=== PATIENT | male | born 1930 | race Caucasian/White ===

== ENCOUNTER 2016-12-01 12:33 | Inpatient (IN) | payer MEDICARE ==
[2016-12-01] MEDS ORDERED: Merrem 1 GM 1 G in Sodium Chloride 100ML MINI-BAG PLUS 100 ML IV STA (12:52)
[2016-12-01] MEDS ORDERED: Sodium Chloride 0.9% 1000 ML 1,000 ML IV SCH (13:00)
[2016-12-01 13:01] LABS: VBG BASE EXCESS 11.1 (-2.0-2.0); VBG CARBOXYHEMOGLOBIN 1.6 % T HGB (0.0-6.9); VBG HCO3- 37.2 meq/L (22-28); VBG O2 SATURATION 26.7 (95-100); VBG POTASSIUM 4.2 (3.5-5.1); VBG pH 7.43 (7.32-7.42)
[2016-12-01] MEDS ORDERED: Merrem 1 GM IV ONE (13:02)
[2016-12-01] MEDS ORDERED: Sodium Chloride 0.9% 1000 ML 1,000 ML ONE (13:03)
[2016-12-01] MEDS ORDERED: Sodium Chloride 0.9% 100 ML IVPB 100 ML IV ONE (13:03)
--- NOTE | 2016-12-01 13:06 | ERPHSYRPT ---
- History of Present Illness Time Seen by Provider: 12/01/16 12:41 Source: patient, family (son who is POA), EMS, [facility] Patient Subjective Stated Complaint: ALTERED LOC, COUGH, FEVER Triage Nursing Assessment: PER ASSISTED STAFF, PT ATE BREAKFAST THIS MORNING AND TOOK MEDS WHOLE AND RECENTLY BECAME 'RATTLING RESP AND UNRESPONSIVE TO STAFF. HE HAS A FEVER OF 101 AX AND ISNT HIMSELF LIKE NORMAL' ON ARRIVAL, KEEPS EYES CLOSED BUT WILL RESPOND TO NAME. APRROPRIATE WITH ANSWERS BUT CONFUSED TO PLACE. COARSE, WET RESPIRATIONS. INDWELLING CATH. WEAK UPPER EXTREMITIES. SKIN MOIST. Physician History: CC: altered mental status Hx: 85 y/o patient [facility]. He has hx of prior spine injury 30 years ago, heart disease, on xarelto, home oxygen at night. He has been sleepy and worsening over one week. Today fever, low O2 sat, and not responding so sent to ER. No vomiting. Wears chronic medrano. No fall or injury known. Not eating or drinking. Allergies/Adverse Reactions: levofloxacin [From Levaquin] Allergy (Intermediate, Verified 12/01/16 12:51) morphine Allergy (Intermediate, Verified 12/01/16 12:51) cefamandole nafate [From Mandol] Allergy (Mild, Verified 12/01/16 12:51) ketorolac tromethamine [From Toradol] Allergy (Mild, Verified 12/01/16 12:51) meperidine HCl [From Demerol] Allergy (Mild, Verified 12/01/16 12:51) mardol Allergy (Uncoded 12/01/16 12:51) Home Medications: Bimatoprost 0.01% [Lumigan 0.01% 2.5 ml] 1 drop OP HS 04/09/14 [History] Budesonide/Formoterol Fumarate [Symbicort 160-4.5 Mcg Inhaler] 2 puff IH BID 05/23 [History] Potassium Chloride 20 Meq Tab [Potassium Chloride 20 MEQ TABLET] 30 meq PO HS [History] Prednisone 10 mg [Deltasone 10 mg] 10 mg PO DAILY 04/09/14 [History] Ranitidine HCl [Zantac] 150 mg PO HS 04/09/14 [History] Acetaminophen [Tylenol Extra Strength] 500 mg PO Q4HPRN PRN 02/11/15 [History] Albuterol/Ipratropium 3ml Neb* [DUONEB 0.5-3 MG/3 ml Neb] 1 neb IH Q6HPRN PRN 02/11/15 [History] Escitalopram Oxalate 10 mg [Lexapro 10 MG] 10 mg PO DAILY 02/11/15 [History] Furosemide [Lasix] 40 mg PO DAILY 02/11/15 [History] Rivaroxaban 10 mg Tablet [Xarelto 10 mg Tablet] 10 mg PO DAILY 02/11/15 [ History] Gabapentin [Neurontin] 300 mg PO TID 03/29/15 [History] Hydrocodone Bit/Acetaminophen [Hickman 5-325 Tablet] 1 each PO TID 03/10/16 [ History] Modafinil 200 mg PO DAILY 03/10/16 [History] Multivit-Min/FA/Lycopene/Lut [Centrum Silver Tablet] 1 each PO DAILY 03/10/16 [ History] Allopurinol 100 mg [Zyloprim 100 mg] 100 mg PO DAILY 11/14/16 [History] Bacitracin [Bacitraycin Plus] 28 gm TP BID 11/14/16 [History] Fluticasone Propionate [Flonase Allergy Relief] 15.8 ml NS BID 11/14/16 [History ] Hydrocortisone [Preparation H] 26 gm TP UD 11/14/16 [History] Loperamide HCl 2 mg [Imodium 2 mg] 2 mg PO Q4H PRN PRN 11/14/16 [History] Mag Hydrox/Al Hydrox/Simeth [Mylanta Maximum Strength Liq] 5 ml PO Q6H PRN PRN 11/14/16 [History] Hx Tetanus, Diphtheria Vaccination/Date Given: Yes Hx Influenza Vaccination/Date Given: No Hx Pneumococcal Vaccination/Date Given: No - Review of Systems Constitutional: Fever Respiratory: Cough (with rattly breathing), Dyspnea Abdominal/Gastrointestinal: No Vomiting All Other Systems: Unable due to condition - Past Medical History Pertinent Past Medical History: Yes Neurological History: Alzheimer's Disease ENT History: Cataracts, Glaucoma Cardiac History: Aneurysm, Arrhythmia, Congestive Heart Failure, Peripheral Vascular Disease Respiratory History: CHF, COPD Endocrine Medical History: No Pertinent History Musculoskeletal History: Fractures, Osteoarthritis, Other GI Medical History: GERD, Hemorrhoids, Other History: Other Psycho-Social History: Depression Male Reproductive Disorders: No Pertinent History Other Medical History: urinary retention, peripheral neuropathy, neuro muscular bladder, tremors, chronic constipation, neurogenic bowel, gout, spinal pelvic and rib fx - Past Surgical History Past Surgical History: Yes Neuro Surgical History: Neurological Surgery Cardiac: Vascular Surgery Respiratory: No Pertinent History Gastrointestinal: No Pertinent History Genitourinary: No Pertinent History Musculoskeletal: Orthopedic Surgery Male Surgical History: No Pertinent History Other Surgical History: aneurysm repair R leg, 100 foot fall resulting in orthopedic and neuro surgery to back - Social History Smoking Status: Never smoker Exposure to second hand smoke: No Alcohol Use: None Drug Use: none Patient Lives Alone: No (usp patient) Significant Family History: no pertinent family hx - Nursing Vital Signs Nursing Vital Signs: Initial Vital Signs Temperature 97.7 F 12/01/16 12:41 Pulse Rate 103 H 12/01/16 12:41 Respiratory Rate 28 H 12/01/16 12:41 Blood Pressure 111/74 12/01/16 12:41 O2 Sat by Pulse Oximetry 92 L 12/01/16 12:41 - Physical Exam General Appearance: alert (answers simple questions for nurses) Eye Exam: other (mid sized pupils are equal) Ears, Nose, Throat Exam: dry mucous membranes Neck Exam: supple Respiratory Exam: respiratory distress (mild rattling breathing), rhonchi Cardiovascular Exam: regular rate/rhythm Gastrointestinal/Abdomen Exam: soft, No tenderness, No distention Back Exam: normal inspection Extremity Exam: pedal edema (trace) Neurologic Exam: alert, other (follows simple commands, weak in legs, mumbles answers to questions) Skin Exam: other (hot skin without rash) SpO2 Interpretation: borderline oxygenation, O2 applied SpO2: 91 Oxygen Delivery: Nasal Cannula - Course Nursing assessment & vital signs reviewed: Yes EKG Interpreted by Me: RATE (102), A-fib, NORMAL INTERVALS (QTc 482), NORMAL ST- T - Radiology Exams cxr X-ray Interpretation: Reviewed by me (CM, Right base infiltrate) - CT Exams head CT Interpretation: Negative, Tele-radiologist Report Ordered Tests: Active Orders 24 hr Category Date Time Status Stamp Redemption Clerk STAT Care 12/01/16 12:41 Active Cath [Catheter-[place] Medrano] STAT Care 12/01/16 14:19 Active EKG-ER Only STAT Care 12/01/16 12:41 Active IV Insertion STAT Care 12/01/16 12:42 Active IV Insertion-2nd Peripheral STAT Care 12/01/16 12:55 Active Oxygen-ED Only NASAL CANNULA 2 lpm Care 12/01/16 12:55 Active Pulse Oximetry (ED) STAT Care 12/01/16 12:41 Active Saline Lock STAT Care 12/01/16 12:41 Active CHEST 1 VIEW (PORTABLE) Stat Exams 12/01/16 12:42 Taken HEAD WITHOUT CONTRAST [CT] Stat Exams 12/01/16 12:50 Taken BLOOD CULTURE Stat Lab 12/01/16 13:00 Received CBC W DIFF Stat Lab 12/01/16 13:00 Completed CMP Routine Lab 12/01/16 13:00 Completed CULTURE,URINE Stat Lab 12/01/16 13:00 Received Lactic Acid Stat Lab 12/01/16 12:41 Completed NT PRO BNP Routine Lab 12/01/16 13:00 Completed PROTIME WITH INR Stat Lab 12/01/16 13:00 Completed PTT Stat Lab 12/01/16 13:00 Completed TROPONIN Q3H Lab 12/01/16 13:00 Completed TROPONIN Q3H Lab 12/01/16 15:45 Ordered TROPONIN Q3H Lab 12/01/16 18:45 Ordered TROPONIN Q3H Lab 12/01/16 21:45 Ordered TROPONIN Q3H Lab 12/02/16 00:45 Ordered UA W/ MICROSCOPIC Stat Lab 12/01/16 13:00 Completed VENOUS BLOOD GAS Urgent Lab 12/01/16 12:42 Completed Medication Summary Generic Name Dose Route Start Last Admin Trade Name Freq PRN Reason Stop Dose Admin Sodium Chloride 1,000 mls @ 100 mls/hr 12/01/16 13:00 12/01/16 13:11 Sodium Chloride 0.9% 1000 Ml IV 12/31/16 12:59 100 mls/hr .Q10H NATALIE Administration Discontinued Medications Generic Name Dose Route Start Last Admin Trade Name Freq PRN Reason Stop Dose Admin Meropenem 1 g/ Sodium Chloride 100 mls @ 200 mls/hr 12/01/16 12:52 12/01/16 13:11 IV 12/01/16 13:21 200 mls/hr STAT STA Administration Sodium Chloride Confirm 12/01/16 13:03 Sodium Chloride 0.9% 100 Ml Ivpb Administered 12/01/16 13:04 Dose 100 mls @ ud IV .STK-MED ONE Meropenem Confirm 12/01/16 13:02 Merrem 1 Gm Administered 12/01/16 13:03 Dose 1 g IV .STK-MED ONE Lab/Rad Data: Laboratory Result Diagrams 12/01/16 13:00 12/01/16 13:00 Laboratory Results 12/01/16 12/01/16 12/01/16 Range/Units 13:00 13:00 13:00 WBC 11.4 H (4.0-10.5) K/mm3 RBC 3.68 L (4.1-5.6) M/mm3 Hgb 10.7 L (12.5-18.0) gm/dl Hct 35.2 L (42-50) % MCV 95.7 (78-100) fl MCH 29.0 (26-32) pg MCHC 30.4 L (32-36) g/dl RDW 16.3 H (11.5-14.0) % Plt Count 337 (150-450) K/mm3 MPV 9.4 (6-9.5) fl Gran % 68.9 H (36.0-66.0) % Lymphocytes % 18.3 L (24.0-44.0) % Monocytes % 11.8 (0.0-12.0) % Eosinophils % 0.8 (0.00-5.0) % Basophils % 0.2 (0.0-0.4) % Basophils # 0.02 (0-0.4) INR 1.47 (0.8-3.0) APTT 36.4 H (24.1-36.1) SECONDS VBG pH (7.32-7.42) VBG pCO2 at Pat Temp (42-55) mm/Hg VBG pO2 at Pat Temp (25-40) mm/Hg VBG HCO3 (22-28) meq/L VBG O2 Sat ([place]) (95-100) VBG Base Excess (-2.0-2.0) VBG Hemoglobin VBG Carboxyhemoglobin (0.0-6.9) % T HGB POC Potassium (3.5-5.1) Sodium 142 (136-145) mEq/L Potassium 4.8 (3.5-5.1) mEq/L Chloride 101 (98-107) mEq/L Carbon Dioxide 30.5 (21-32) mEq/L Anion Gap 15.6 H (5-15) MEQ/L BUN 35 H (9-20) mg/dL Creatinine 1.77 H (0.55-1.30) mg/dl Estimated GFR 39 ML/MIN Glucose 155 H (70-110) MG/DL Lactic Acid (0.4-2.0) Calcium 9.5 (8.5-10.1) mg/dL Total Bilirubin 0.40 (0.2-1.0) mg/dL AST 43 H (15-37) U/L ALT 57 (12-78) U/L Alkaline Phosphatase 105 (46-116) U/L Troponin I 0.164 H* (0.000-0.056) ng/ml NT-Pro-B Natriuret Pep 4056 H (0-450) pg/ml Serum Total Protein 7.9 (6.4-8.2) gm/dL Albumin 3.1 L (3.4-5.0) g/dL Ur Collection Type Urine Color (YELLOW) Urine Appearance (CLEAR) Urine pH (5-6) Ur Specific [place] (1.005-1.025) Urine Protein (Negative) Urine Ketones (NEGATIVE) Urine Blood (0-5) [place]/ul Urine Nitrite (NEGATIVE) Urine Bilirubin (NEGATIVE) Urine Urobilinogen (0-1) mg/dL Ur Leukocyte Esterase (NEGATIVE) Urine Microscopic RBC (0-2) /HPF Urine Microscopic WBC (0-5) /HPF Ur Epithelial Cells (FEW) /HPF Urine Bacteria (NEGATIVE) /HPF Urine Glucose (NEGATIVE) mg/dL Specimen Received 12/01/16 12/01/16 12/01/16 Range/Units 13:00 12:42 12:41 WBC (4.0-10.5) K/mm3 RBC (4.1-5.6) M/mm3 Hgb (12.5-18.0) gm/dl Hct (42-50) % MCV (78-100) fl MCH (26-32) pg MCHC (32-36) g/dl RDW (11.5-14.0) % Plt Count (150-450) K/mm3 MPV (6-9.5) fl Gran % (36.0-66.0) % Lymphocytes % (24.0-44.0) % Monocytes % (0.0-12.0) % Eosinophils % (0.00-5.0) % Basophils % (0.0-0.4) % Basophils # (0-0.4) INR (0.8-3.0) APTT (24.1-36.1) SECONDS VBG pH 7.43 H (7.32-7.42) VBG pCO2 at Pat Temp 56 H (42-55) mm/Hg VBG pO2 at Pat Temp 18 L (25-40) mm/Hg VBG HCO3 37.2 H* (22-28) meq/L VBG O2 Sat ([place]) 26.7 L (95-100) VBG Base Excess 11.1 H (-2.0-2.0) VBG Hemoglobin 11.0 VBG Carboxyhemoglobin 1.6 (0.0-6.9) % T HGB POC Potassium 4.2 (3.5-5.1) Sodium (136-145) mEq/L Potassium (3.5-5.1) mEq/L Chloride (98-107) mEq/L Carbon Dioxide (21-32) mEq/L Anion Gap (5-15) MEQ/L BUN (9-20) mg/dL Creatinine (0.55-1.30) mg/dl Estimated GFR ML/MIN Glucose (70-110) MG/DL Lactic Acid 1.8 (0.4-2.0) Calcium (8.5-10.1) mg/dL Total Bilirubin (0.2-1.0) mg/dL AST (15-37) U/L ALT (12-78) U/L Alkaline Phosphatase (46-116) U/L Troponin I (0.000-0.056) ng/ml NT-Pro-B Natriuret Pep (0-450) pg/ml Serum Total Protein (6.4-8.2) gm/dL Albumin (3.4-5.0) g/dL Ur Collection Type CATH Urine Color YELLOW (YELLOW) Urine Appearance CLOUDY (CLEAR) Urine pH 5.0 (5-6) Ur Specific [place] 1.015 (1.005-1.025) Urine Protein 100 (Negative) Urine Ketones NEGATIVE (NEGATIVE) Urine Blood 250 (0-5) [place]/ul Urine Nitrite NEGATIVE (NEGATIVE) Urine Bilirubin NEGATIVE (NEGATIVE) Urine Urobilinogen NORMAL (0-1) mg/dL Ur Leukocyte Esterase 2+ (NEGATIVE) Urine Microscopic RBC 25-50 (0-2) /HPF Urine Microscopic WBC 50-100 (0-5) /HPF Ur Epithelial Cells FEW (FEW) /HPF Urine Bacteria MODERATE (NEGATIVE) /HPF Urine Glucose NEGATIVE (NEGATIVE) mg/dL Specimen Received 12/01/16 1245 - Progress Progress Note: 12/01/16 13:04 Son requests [facility]. He would like CT since pt was unresponsive at [facility] and for EMS. 12/01/16 14:26 Pt visiting with family. He has been confused. He has some UTI from chronic medrano at [facility] POA. He has some RLL infiltrate. Called Dr Wiseman for Dr Brock and will admit. Pt family agrees with [facility]CO but prefers ICU. Will see patient in: hospital (full admit) Counseled pt/family regarding: lab results, diagnosis, need for follow-up, rad results - Departure Time of Disposition: 14:27 Departure Disposition: In-patient Admission Clinical Impression: UTI (urinary tract infection), Sepsis, pneumonia health care associated Condition: Fair Critical Care Time: No Referrals: OSWALDO BROCK [Primary Care Provider] -
[2016-12-01 13:09] LABS: BASOPHIL % 0.2 % (0.0-0.4); Eosinophil % 0.8 % (0.00-5.0); Granulocytes % 68.9 % (36.0-66.0); Lymphocytes % 18.3 % (24.0-44.0); Mean Cell Volume 95.7 fl (78-100); Mean Platelet Volume 9.4 fl (6-9.5); Monocytes % 11.8 % (0.0-12.0); Platelet Count 337 K/mm3 (150-450); Red Blood Count 3.68 M/mm3 (4.1-5.6); Red Cell Distribution Width 16.3 % (11.5-14.0); White Blood Count 11.4 K/mm3 (4.0-10.5)
[2016-12-01 13:17] LABS: Bilirubin NEGATIVE (NEGATIVE); Blood 250 Ery/ul (0-5); COMPLETE URINE MICROSCOPIC? YES; Collection Type CATH; Glucose NEGATIVE (NEGATIVE); Leukocyte Esterase 2+ (NEGATIVE)
[2016-12-01 13:23] LABS: Bacteria MODERATE /HPF (NEGATIVE); Epithelial Cells FEW /HPF (FEW); WBC 50-100 /HPF (0-5)
[2016-12-01 13:24] LABS: INR 1.47 (0.8-3.0); PROTIME 16.7 SECONDS (8.83-12.87)
[2016-12-01 13:27] LABS: PTT 36.4 SECONDS (24.1-36.1)
[2016-12-01 13:49] LABS: ALBUMIN 3.1 g/dL (3.4-5.0); ANION GAP 15.6 MEQ/L (5-15); BILIRUBIN,TOTAL 0.4 mg/dL (0.2-1.0); Carbon Dioxide 30.5 mEq/L (21-32); Potassium 4.8 mEq/L (3.5-5.1); Total Protein 7.9 gm/dL (6.4-8.2)
[2016-12-01 13:51] LABS: TROPONIN 0.164 ng/ml (0.000-0.056)
[2016-12-01] MEDS ORDERED: Lasix 40 MG/4 ML IV ONE (14:25)
[2016-12-01] MEDS ORDERED: Lasix 40 MG/4 ML ONE (14:27)
[2016-12-01] MEDS ORDERED: NovoLOG Insulin SQ PRN (15:20)
[2016-12-01] MEDS: DUONEB 0.5-3 MG/3 ml Neb IH PRN ×2 (15:40→23:20)
[2016-12-01] MEDS ORDERED: PULMICORT 0.5 MG/2 ML RESPULES IH ONE (18:30)
[2016-12-01] MEDS ORDERED: PULMICORT NEBULE IH SCH (19:00)
[2016-12-01] MEDS ORDERED: PULMICORT 0.5 MG/2 ML RESPULES IH SCH (19:00)
[2016-12-01] MEDS: DUONEB 0.5-3 MG/3 ml Neb IH SCH (19:16)
[2016-12-01] MEDS: PULMICORT NEBULE IH SCH (19:17)
--- NOTE | 2016-12-01 19:17 | XRAY ---
Indication: Unresponsive. Multiple contiguous axial images obtained through the head without contrast. Comparison: February 28, 2015. Stable age-appropriate global atrophy and mild periventricular degenerative micro-ischemia. No acute intracranial hemorrhage, abnormal extra-axial fluid collection, or mass effect. Fourth ventricle is midline. Bony calvarium intact. Stable chronic mucoperiosteal thickening of the right maxillary sinus. Mastoid air cells clear. Impression: Stable nonacute senile brain with chronic right maxillary sinusitis. Comment: Preliminary interpretation was made by [facility]. No discrepancy. CTDI 71.08
--- NOTE | 2016-12-01 19:17 | XRAY ---
Indication: Fever and cough. Comparison: June 06, 2016. Portable chest unchanged again underinflated with bibasilar infiltrate/atelectasis. No consolidation or large effusion. Heart is borderline enlarged. Bony thorax intact again with osteopenia and degenerative changes.
[2016-12-01 20:54] LABS: A-aADO2 322; ARTERIAL BLD GAS O2 SATURATION 93.5 % (95-100); ARTERIAL BLOOD GAS BASE EXCESS 8.6 (-2.0-2.0); ARTERIAL BLOOD GAS FIO2 60 %; ARTERIAL BLOOD GAS PO2 61 mmHg (75-100)
[2016-12-01] MEDS ORDERED: Lasix 40 MG/4 ML IV STA (21:06)
[2016-12-01] MEDS: Zithromax 500 MG/ 250 ML NaCl Premix 500 MG/250 ML IVPB IV SCH (21:19)
[2016-12-01] MEDS: ROCEPHIN 1 Gm-D5w 50 ml Bag** 1 G/50 ML IVPB IV SCH (21:32)
[2016-12-01 21:49] LABS: ARTERIAL BLOOD GAS pH 7.55 (7.35-7.45)
[2016-12-01] MEDS ORDERED: NORCO 5/325 MG PO ONE (22:00)
[2016-12-01] MEDS ORDERED: NEURONTIN 300 MG PO ONE (22:00)
[2016-12-01] MEDS ORDERED: Klor Con 10 MEQ PO ONE (22:00)
[2016-12-01] MEDS ORDERED: Pepcid 20 MG PO ONE (22:00)
[2016-12-01] MEDS ORDERED: LUMIGAN 0.01% 2.5 ML OP ONE (22:00)
[2016-12-01] MEDS: MERREM 500MG 500 MG in Sodium Chloride 100ML MINI-BAG PLUS 100 ML IV SCH (22:59)
[2016-12-02] MEDS: Sodium Chloride 0.9% 1000 ML 1,000 ML IV SCH ×2 (02:11→18:00)
[2016-12-02] MEDS: MERREM 500MG 500 MG in Sodium Chloride 100ML MINI-BAG PLUS 100 ML IV SCH ×3 (06:29→22:31)
[2016-12-02] MEDS ORDERED: PULMICORT 0.5 MG/2 ML RESPULES IH ONE ×2 (07:21→18:42)
[2016-12-02] MEDS: PULMICORT NEBULE IH SCH ×2 (07:23→19:09)
[2016-12-02] MEDS: DUONEB 0.5-3 MG/3 ml Neb IH SCH ×4 (07:30→19:09)
[2016-12-02 07:52] LABS: Mean Cell Volume 95.2 fl (78-100); Platelet Count 334 K/mm3 (150-450); Red Blood Count 3.31 M/mm3 (4.1-5.6); Red Cell Distribution Width 16.2 % (11.5-14.0); White Blood Count 10.3 K/mm3 (4.0-10.5)
[2016-12-02 08:21] LABS: ANION GAP 13.9 MEQ/L (5-15); Carbon Dioxide 31.2 mEq/L (21-32); Potassium 4.1 mEq/L (3.5-5.1)
[2016-12-02] MEDS ORDERED: NORCO 5/325 MG PO ONE (09:00)
[2016-12-02] MEDS ORDERED: SUBLIMAZE 100 MCG/2 ML IV PRN (09:27)
[2016-12-02] MEDS: TYLENOL EXTRA STRENGTH 500 MG PO PRN ×2 (09:54→15:20)
[2016-12-02] MEDS ORDERED: DELTASONE 10 MG PO SCH (10:00)
[2016-12-02] MEDS: ROCEPHIN 1 Gm-D5w 50 ml Bag** 1 G/50 ML IVPB IV SCH (10:01)
[2016-12-02] MEDS ORDERED: CORTISONE 1% CREAM TP PRN (10:30)
[2016-12-02] MEDS: Zithromax 500 MG/ 250 ML NaCl Premix 500 MG/250 ML IVPB IV SCH (10:32)
[2016-12-02] MEDS ORDERED: BACITRACIN TP SCH (11:00)
[2016-12-02] MEDS: Lasix 40 MG PO SCH (11:21)
[2016-12-02] MEDS: XARELTO 10 MG TABLET PO SCH (11:21)
[2016-12-02] MEDS: Lexapro 10 MG PO SCH (11:21)
[2016-12-02] MEDS: BACIGUENT 30 GM TOP SCH ×2 (11:22→22:32)
[2016-12-02] MEDS: THERAGRAN MULTIVITAMIN PO SCH (11:22)
[2016-12-02] MEDS: ZYLOPRIM 100 MG PO SCH (11:22)
[2016-12-02] MEDS: Provigil 100MG Tablet PO SCH (11:22)
[2016-12-02] MEDS: Flonase NASAL NS SCH ×2 (11:23→22:32)
[2016-12-02] MEDS ORDERED: [UNRECOGNIZED DRUG - REMARK] NS SCH (22:00)
[2016-12-02] MEDS ORDERED: NON-FORMULARY ITEM (Ranitidine Hcl [Zantac] 150 MG) PO SCH (22:00)
[2016-12-02] MEDS ORDERED: POTASSIUM CHLORIDE 20 MEQ PO SCH (22:00)
[2016-12-02] MEDS ORDERED: Klor Con 10 MEQ PO SCH (22:00)
[2016-12-02] MEDS: LUMIGAN 0.01% 2.5 ML OP SCH (22:32)
[2016-12-02] MEDS: Pepcid 20 MG PO SCH (22:37)
[2016-12-03 05:37] LABS: Mean Cell Volume 96.2 fl (78-100); Mean Platelet Volume 8.6 fl (6-9.5); Platelet Count 311 K/mm3 (150-450); Red Blood Count 3.16 M/mm3 (4.1-5.6); Red Cell Distribution Width 16.1 % (11.5-14.0); White Blood Count 8.5 K/mm3 (4.0-10.5)
[2016-12-03 05:43] LABS: Mean Corpuscular Hemoglobin 28.7 pg (26-32)
[2016-12-03 06:19] LABS: ALBUMIN 2.6 g/dL (3.4-5.0); ANION GAP 10.8 MEQ/L (5-15); BILIRUBIN,TOTAL 0.3 mg/dL (0.2-1.0); Carbon Dioxide 33.4 mEq/L (21-32); Potassium 3.4 mEq/L (3.5-5.1); Total Protein 6.9 gm/dL (6.4-8.2)
[2016-12-03 06:23] LABS: Total Cells Counted 100
[2016-12-03 06:24] LABS: ANISOCYTOSIS 1+; Platelet Estimate NORMAL (NORMAL); Poikilocytosis 1+
[2016-12-03] MEDS: Sodium Chloride 0.9% 1000 ML 1,000 ML IV SCH (06:30)
[2016-12-03] MEDS: MERREM 500MG 500 MG in Sodium Chloride 100ML MINI-BAG PLUS 100 ML IV SCH ×3 (06:30→22:26)
[2016-12-03] MEDS ORDERED: PULMICORT 0.5 MG/2 ML RESPULES IH ONE (06:58)
[2016-12-03] MEDS: PULMICORT NEBULE IH SCH (07:02)
[2016-12-03] MEDS: DUONEB 0.5-3 MG/3 ml Neb IH SCH ×4 (07:02→19:05)
--- NOTE | 2016-12-03 08:11 | PCM.NOTE ---
Date and Time: 12/03/16 08 Subjective Assessment: he is more alert this am. he had one episode of low bp last night but much improved from previous night he had fever yesterday and meropenem was added. he seems to be improving some this am still confused. Objective Exam General Appearance: obese Neurologic Exam: alert, cooperative, No oriented x 3 Skin Exam: warm, dry, No rash Eye Exam: pale conjunctivae Ears, Nose, Throat Exam: moist mucous membranes Neck Exam: non-tender, supple Respiratory Exam: prolonged expirations, crackles/rales, rhonchi Cardiovascular Exam: regular rate/rhythm, murmur Gastrointestinal/Abdomen Exam: soft, normal bowel sounds, other (Medrano with clear yellow urine), No tenderness, No distention, No guarding Extremity Exam: other (avulsed right 3rd toenail) OBJECTIVE DATA Vital Signs: Vital Signs - 24 hr Temp Pulse Resp BP Pulse Ox 12/03/16 07:05 94 H 20 93 L 12/03/16 04:00 98.4 F 101 H 15 103/66 97 12/03/16 00:30 98.4 F 102 H 22 97/64 95 12/03/16 00:00 101 H 12/02/16 20:00 99.7 F 117 H 21 106/86 96 12/02/16 19:09 103 H 21 97 12/02/16 18:00 99.1 F 109 H 24 92/61 98 12/02/16 16:00 124 H 12/02/16 14:29 112 H 24 99 12/02/16 14:00 100.4 F 120 H 27 H 104/69 97 12/02/16 12:00 107 H 12/02/16 10:45 123 H 28 H 95 12/02/16 10:00 100.1 F 117 H 30 H 124/63 94 L Oxygen-Last 24 hours O2 Percentage 100% O2 Percentage 5 Liters = 40% O2 Percentage 5 Liters = 40% O2 Percentage 100% Pain Assessment - Last Documented Pain Intensity 0 Pain Scale Used FLACC Intake and Output: Intake & Output 11/30/16 12/01/16 12/02/16 12/03/16 11:59 11:59 11:59 11:59 Intake Total 1495 1922 Output Total 4330 1575 Balance -1105 347 Weight 98.1 kg 97.9 kg Lab Results: Accuchecks Date 12/03/16 Date 12/03/16 Date 12/02/16 Date 12/02/16 Time 01:15 Time 18:46 Accucheck Value: 113 Accucheck Value: 187 Accucheck Value: 185 Lab Results-Last 24 Hours 12/02/16 12/02/16 12/02/16 Range/Units 07:43 07:43 09:40 WBC 10.3 (4.0-10.5) K/mm3 RBC 3.31 L (4.1-5.6) M/mm3 Hgb 9.6 L (12.5-18.0) gm/dl Hct 31.5 L (42-50) % MCV 95.2 (78-100) fl MCH 29.0 (26-32) pg MCHC 30.5 L (32-36) g/dl RDW 16.2 H (11.5-14.0) % Plt Count 334 (150-450) K/mm3 MPV 9.0 (6-9.5) fl Segmented Neutrophils (36.-66.) % Lymphocytes (Manual) (24-44) % Monocytes (Manual) (0.0-12.0) % Differential Comment Platelet Estimate (NORMAL) Poikilocytosis Anisocytosis Sodium 144 (136-145) mEq/L Potassium 4.1 (3.5-5.1) mEq/L Chloride 103 (98-107) mEq/L Carbon Dioxide 31.2 (21-32) mEq/L Anion Gap 13.9 (5-15) MEQ/L BUN 29 H (9-20) mg/dL Creatinine 1.49 H (0.55-1.30) mg/dl Estimated GFR 48 ML/MIN Glucose 130 H (70-110) MG/DL Calcium 8.5 (8.5-10.1) mg/dL Total Bilirubin (0.2-1.0) mg/dL AST (15-37) U/L ALT (12-78) U/L Alkaline Phosphatase (46-116) U/L Serum Total Protein (6.4-8.2) gm/dL Albumin (3.4-5.0) g/dL Stl C. diff Tox B Gene (NEGATIVE) C.difficile 027-NAP1-B1 (NEGATIVE) Influenza Type A Ag NEGATIVE (NEGATIVE) Influenza Type B Ag NEGATIVE (NEGATIVE) RSV (PCR) NEGATIVE (Negative) 12/02/16 12/03/16 12/03/16 Range/Units 12:02 05:25 05:25 WBC 8.5 (4.0-10.5) K/mm3 RBC 3.16 L (4.1-5.6) M/mm3 Hgb 9.1 L (12.5-18.0) gm/dl Hct 30.4 L (42-50) % MCV 96.2 (78-100) fl MCH 28.7 (26-32) pg MCHC 29.9 L (32-36) g/dl RDW 16.1 H (11.5-14.0) % Plt Count 311 (150-450) K/mm3 MPV 8.6 (6-9.5) fl Segmented Neutrophils 88 H (36.-66.) % Lymphocytes (Manual) 11 L (24-44) % Monocytes (Manual) 1 (0.0-12.0) % Differential Comment ABNORMAL Platelet Estimate NORMAL (NORMAL) Poikilocytosis 1+ Anisocytosis 1+ Sodium 147 H (136-145) mEq/L Potassium 3.4 L (3.5-5.1) mEq/L Chloride 106 (98-107) mEq/L Carbon Dioxide 33.4 H (21-32) mEq/L Anion Gap 10.8 (5-15) MEQ/L BUN 25 H (9-20) mg/dL Creatinine 1.24 (0.55-1.30) mg/dl Estimated GFR 59 ML/MIN Glucose 103 (70-110) MG/DL Calcium 8.8 (8.5-10.1) mg/dL Total Bilirubin 0.30 (0.2-1.0) mg/dL AST 24 (15-37) U/L ALT 34 (12-78) U/L Alkaline Phosphatase 83 (46-116) U/L Serum Total Protein 6.9 (6.4-8.2) gm/dL Albumin 2.6 L (3.4-5.0) g/dL Stl C. diff Tox B Gene NEGATIVE (NEGATIVE) C.difficile 027-NAP1-B1 PRESUMPTIVE NEGATIVE (NEGATIVE) Influenza Type A Ag (NEGATIVE) Influenza Type B Ag (NEGATIVE) RSV (PCR) (Negative) Radiology Exams: Radiology Procedures Category Date Time Status CHEST 1 VIEW (PORTABLE) Routine Exams 12/03/16 08:09 Ordered Multi-Disciplinary Progress Notes: Multi-Disciplinary Progress Notes 12/02/16 16:24 Respiratory Note by Mariposa Orozco 7LPM OXIMASK SPO2 98. DEC TO 5LPM Initialized on 12/02/16 16:24 - END OF NOTE Assessment/Plan (1) Pneumonia Current Visit: Yes Status: Acute Assessment & Plan: health care associated with sepsis on meropenem now and improving with his chronic steroid use and hx of copdand his episodes of hypotension will add hydrocortisone 50 qid and monitor response to this with history of chf check cxr and decrease fluids to 50ml/h now monitor I/O closely renal function improving but avoid fluid overload with severe chf Code(s): J18.9 - PNEUMONIA, UNSPECIFIED ORGANISM (2) Acute kidney injury Current Visit: Yes Status: Acute Code(s): N17.9 - ACUTE KIDNEY FAILURE, UNSPECIFIED (3) Encephalopathy acute Current Visit: Yes Status: Acute Code(s): G93.40 - ENCEPHALOPATHY, UNSPECIFIED (4) Sepsis Current Visit: Yes Status: Acute (5) UTI (urinary tract infection) Current Visit: Yes Status: Acute Code(s): N39.0 - URINARY TRACT INFECTION, SITE NOT SPECIFIED (6) CHF (congestive heart failure) Current Visit: Yes Status: Chronic Qualifiers: Congestive heart failure type: combined Congestive heart failure chronicity : chronic Qualified Code(s): I50.42 - Chronic combined systolic (congestive) and diastolic (congestive) heart failure Code(s): I50.9 - HEART FAILURE, UNSPECIFIED (7) BPH (benign prostatic hyperplasia) Current Visit: Yes Status: Chronic Assessment & Plan: with chronic medrano catheter Code(s): N40.0 - BENIGN PROSTATIC HYPERPLASIA WITHOUT LOWER URINRY TRACT SYMP (8) Dementia Current Visit: Yes Status: Chronic Code(s): F03.90 - UNSPECIFIED DEMENTIA WITHOUT BEHAVIORAL DISTURBANCE (9) Anemia Current Visit: Yes Status: Acute Code(s): D64.9 - ANEMIA, UNSPECIFIED
--- NOTE | 2016-12-03 08:35 | XRAY ---
Indication: Follow-up pneumonia. Comparison: December 01, 2016. Portable chest demonstrates interval developing small bibasilar effusions with stable bibasilar infiltrates/atelectasis and borderline cardiomegaly. Remaining cardiopulmonary structures unremarkable.
--- NOTE | 2016-12-03 08:49 | HP ---
CHIEF COMPLAINT: Lethargy, confusion, fever. HISTORY OF PRESENT ILLNESS: The patient is an 85 y/o [facility] patient of a local intermediate. He has been having problems with infection over the past couple of days getting worse. He had been treated for a urinary tract infection of E. Coli at the intermediate. He has been receiving Keflex, but had become progressively worse. The family wished him to be brought to the Emergency Room for evaluation and management. He was subsequently admitted to the hospital with preliminary diagnosis of sepsis. PAST MEDICAL HISTORY: Significant for coronary artery disease, history of congestive heart failure, peripheral vascular disease, chronic obstructive pulmonary disease, osteoarthritis, previous history of fractures, and atrial fibrillation. HOME MEDICATIONS: His list of medications in the nursing are [place], Symbicort, potassium, prednisone, Zantac, Tylenol, DuoNebs, Lexapro, Lasix, Xarelto, Neurontin, [place], fentanyl, Centrum tablets, allopurinol, bacitracin, Flonase nasal spray, cortisone cream, Imodium, and MOM. ALLERGIES: LEVAQUIN, MORPHINE, MANDOL, TORADOL, DEMEROL. PHYSICAL EXAMINATION: Presently reveals a lethargic fellow in the Intensive Care Unit who is on O2 100% nonrebreather mask saturating 94% presently. HEENT: Otherwise difficult to evaluation as he is not opening eyes voluntarily. His oropharynx appears to be somewhat dry. NECK: Appears to be supple. CHEST: Reveals coarse rales bilaterally. HEART: Currently, is in normal sinus rhythm without significant murmurs, rubs, or gallops heard. ABDOMEN: Soft. No palpable masses are felt. EXTREMITIES: Reveal mild edema. NEURO: The patient is obtunded. No obvious focal deficits are present. LABORATORY STUDIES: In the Emergency Room, showed a chest x-ray with atelectasis or infiltrate in bibasilar areas. CT scan of the head revealed no acute changes. He had noted to have 50-100 WBC per high powered field with negative nitrite. Specific gravity was 1.015. He had a venous blood gas performed which showed pH of 7.43 and a PCO2 of 56. He had an INR of 1.47. Lactic acid initially was 1.8. His metabolic panel showed a glucose of 155 nonfasting, BUN 35, creatinine 1.77. Electrolytes were normal. Liver enzymes appeared to be normal. His troponin was elevated at 0.164. A NT Pro BNP was elevated at 4056. His WBC was 11,400, Hgb 10.7, and platelet count 337,000. Urine culture was no growth to date. ASSESSMENT: 1. THE PATIENT WITH AN INFECTION, POSSIBLE SEPSIS AND ORGAN FAILURES OCCURRING. He was given IV Lasix and Meropenem in the Emergency Room which he did seem to improve with this improving his mentation. However, since that time, he has been somewhat hypotensive and hypoxic. The patient has been made an SCO by his family which we agree with. The patient's overall condition is quite guarded. It is quite possible the patient will not survive the hospitalization. We have added Rocephin and Zithromax as the family says his last urine culture was positive for E. Coli, but sensitive to Rocephin. We have modified his medication list as it appears he will be unlikely to take his medicines PO. We have discussed with the family pain control with Tylenol, but in order to try to help his lethargy, we are holding his Neurontin and [place] presently.
[2016-12-03] MEDS ORDERED: [UNRECOGNIZED DRUG - OTHER] PO SCH (10:00)
[2016-12-03] MEDS ORDERED: LUT PO SCH (10:00)
[2016-12-03] MEDS ORDERED: LYCOPENE PO SCH (10:00)
[2016-12-03] MEDS ORDERED: MODAFINIL 200 MG PO SCH (10:00)
[2016-12-03] MEDS ORDERED: MULTIVIT MIN PO SCH (10:00)
[2016-12-03] MEDS: Provigil 100MG Tablet PO SCH ×2 (10:23→10:25)
[2016-12-03] MEDS: solu-CORTEF 100MG IV SCH ×3 (10:23→17:42)
[2016-12-03] MEDS: TYLENOL EXTRA STRENGTH 500 MG PO PRN (10:26)
[2016-12-03] MEDS: Lasix 40 MG PO SCH (10:26)
[2016-12-03] MEDS: XARELTO 10 MG TABLET PO SCH (10:26)
[2016-12-03] MEDS: THERAGRAN MULTIVITAMIN PO SCH (10:26)
[2016-12-03] MEDS: Flonase NASAL NS SCH ×2 (10:27→22:27)
[2016-12-03] MEDS: BACIGUENT 30 GM TOP SCH ×2 (10:27→22:26)
[2016-12-03] MEDS: ZYLOPRIM 100 MG PO SCH (10:28)
[2016-12-03] MEDS: Lexapro 10 MG PO SCH (10:30)
--- NOTE | 2016-12-03 12:11 | PCM.NOTE ---
Date and Time: 12/03/16 1151 OBJECTIVE DATA Vital Signs: Vital Signs - 24 hr Temp Pulse Resp BP Pulse Ox 12/03/16 10:41 101 H 22 100 12/03/16 08:00 98.4 F 104 H 18 112/73 97 12/03/16 07:05 94 H 20 93 L 12/03/16 04:00 98.4 F 101 H 15 103/66 97 12/03/16 00:30 98.4 F 102 H 22 97/64 95 12/03/16 00:00 101 H 12/02/16 20:00 99.7 F 117 H 21 106/86 96 12/02/16 19:09 103 H 21 97 12/02/16 18:00 99.1 F 109 H 24 92/61 98 12/02/16 16:00 124 H 12/02/16 14:29 112 H 24 99 12/02/16 14:00 100.4 F 120 H 27 H 104/69 97 12/02/16 12:00 107 H Oxygen-Last 24 hours O2 Percentage 100% O2 Percentage 5 Liters = 40% O2 Percentage 5 Liters = 40% Pain Assessment - Last Documented Pain Intensity 0 Pain Scale Used FLACC Intake and Output: Intake & Output 11/30/16 12/01/16 12/02/16 12/03/16 11:59 11:59 11:59 11:59 Intake Total 1495 1922 Output Total 2600 1575 Balance -1105 347 Weight 98.1 kg 97.9 kg Lab Results: Accuchecks Date 12/03/1612/03/16 Date 12/02/16 Date 12/02/16 Time 01:15 Time 18:46 Accucheck Value: 113 Accucheck Value: 187 Accucheck Value: 185 Lab Results-Last 24 Hours 12/02/16 12/03/16 12/03/16 Range/Units 12:02 05:25 05:25 WBC 8.5 (4.0-10.5) K/mm3 RBC 3.16 L (4.1-5.6) M/mm3 Hgb 9.1 L (12.5-18.0) gm/dl Hct 30.4 L (42-50) % MCV 96.2 (78-100) fl MCH 28.7 (26-32) pg MCHC 29.9 L (32-36) g/dl RDW 16.1 H (11.5-14.0) % Plt Count 311 (150-450) K/mm3 MPV 8.6 (6-9.5) fl Segmented Neutrophils 88 H (36.-66.) % Lymphocytes (Manual) 11 L (24-44) % Monocytes (Manual) 1 (0.0-12.0) % Differential Comment ABNORMAL Platelet Estimate NORMAL (NORMAL) Poikilocytosis 1+ Anisocytosis 1+ Sodium 147 H (136-145) mEq/L Potassium 3.4 L (3.5-5.1) mEq/L Chloride 106 (98-107) mEq/L Carbon Dioxide 33.4 H (21-32) mEq/L Anion Gap 10.8 (5-15) MEQ/L BUN 25 H (9-20) mg/dL Creatinine 1.24 (0.55-1.30) mg/dl Estimated GFR 59 ML/MIN Glucose 103 (70-110) MG/DL Calcium 8.8 (8.5-10.1) mg/dL Total Bilirubin 0.30 (0.2-1.0) mg/dL AST 24 (15-37) U/L ALT 34 (12-78) U/L Alkaline Phosphatase 83 (46-116) U/L Serum Total Protein 6.9 (6.4-8.2) gm/dL Albumin 2.6 L (3.4-5.0) g/dL Stl C. diff Tox B Gene NEGATIVE (NEGATIVE) C.difficile [id number] PRESUMPTIVE NEGATIVE (NEGATIVE) Radiology Exams: Radiology Procedures Category Date Time Status CHEST 1 VIEW (PORTABLE) Routine Exams 12/03/16 08:09 Completed Multi-Disciplinary Progress Notes: Multi-Disciplinary Progress Notes 12/02/16 16:24 Respiratory Note by Mariposa Orozco 7LPM OXIMASK SPO2 98. DEC TO 5LPM Initialized on 12/02/16 16:24 - END OF NOTE
[2016-12-03] MEDS ORDERED: SUBLIMAZE 100 MCG/2 ML IV PRN (12:54)
--- NOTE | 2016-12-03 15:07 | CONS ---
CONSULT DATE: 12/03/2016 HISTORY: Gopal Rodríguez is an 85 year-old male known to me who has been hospitalized with complaints of confusion and possible sepsis. The patient was noted to have Escherichia coli urinary tract infection. He is currently being treated with antibiotics. The patient has remained in ICU. He was noted to have fluctuating oxygen saturation but currently appears stable on face mask. 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 PAST MEDICAL HISTORY: Positive for chronic obstructive pulmonary disease, chronic bronchitis, congestive heart failure, peripheral vascular disease, osteoarthritis, gastroesophageal reflux and neurologic bladder. PAST SURGICAL HISTORY: No recent surgery. PERSONAL AND SOCIAL HISTORY: He is a resident of a nursing facility. MEDICATIONS: [facility] and current hospital medications were reviewed. ALLERGIES: ALLERGIES NOTED. PHYSICAL EXAMINATION: This is an elderly male who appears confused but comfortable. The patient knows he is in a hospital but is unable to give any additional history. He does report "feeling better" today. Clinically afebrile. VITAL SIGNS: Heart rate 67, blood pressure 108/82. HEENT: Normocephalic. Pupils are reactive. Oropharynx is limited. NECK: Supple. CVS: First and second heart sounds reveal mild tachycardia. RESPIRATORY: Shows diminished breath sounds. Occasional rhonchi heard. ABDOMEN: Soft. EXTREMITIES: Trace edema is noted. LABORATORY DATA AND TESTS: Labs show Escherichia coli. Culture and sensitivity is noted. Sodium 147, potassium 3.4, chloride 106, bicarb 33, glucose 103, BUN 29, creatinine 1.4, white blood cell count 8.5, hemoglobin 9.1, hematocrit 30, PLT 311,000. Blood cultures have remained negative. Chest x-ray showed bilateral basilar atelectasis with developing effusions. Clostridium difficile negative. ASSESSMENT: This is an 85 year old male admitted with: 1) Sepsis secondary to urinary tract infection present on admission. Improving hemodynamically. 2) Underlying chronic obstructive pulmonary disease, stable. 3) Chronic hypoxic respiratory failure. 4) Underlying dementia getting worse from being out of usual place. RECOMMENDATIONS: I agree with current antibiotics. The patient has been on Merrem. Renteria catheter has been changed. I agree with anticoagulation given he is high risk for deep venous thrombosis from bedbound status. Advised to reduce IV fluids, continue his supportive care. May transfer back to nursing facility when okay from medical standpoint. Prognosis remains guarded due to age and comorbidities. Thank you for allowing me to participate in the care of Gopal Rodríguez.
[2016-12-03] MEDS: PULMICORT 0.5 MG/2 ML RESPULES IH SCH (19:04)
[2016-12-03] MEDS ORDERED: Klor Con 10 MEQ PO SCH (22:00)
[2016-12-03] MEDS: LUMIGAN 0.01% 2.5 ML OP SCH (22:26)
[2016-12-03] MEDS: Pepcid 20 MG PO SCH (22:27)
[2016-12-04] MEDS: Sodium Chloride 0.9% 1000 ML 1,000 ML IV SCH (01:58)
[2016-12-04] MEDS: solu-CORTEF 100MG IV SCH ×5 (01:58→23:25)
[2016-12-04 05:26] LABS: Mean Cell Volume 96.3 fl (78-100); Mean Corpuscular Hemoglobin 28.9 pg (26-32); Mean Platelet Volume 8.8 fl (6-9.5); Platelet Count 338 K/mm3 (150-450); Red Blood Count 3.25 M/mm3 (4.1-5.6); Red Cell Distribution Width 15.9 % (11.5-14.0); White Blood Count 9.7 K/mm3 (4.0-10.5)
[2016-12-04 06:06] LABS: ANION GAP 10.7 MEQ/L (5-15); BLOOD UREA NITROGEN 22 mg/dL (9-20); CHLORIDE 108 mEq/L (98-107); Carbon Dioxide 32.3 mEq/L (21-32); Glucose 145 MG/DL (70-110); Potassium 3.3 mEq/L (3.5-5.1); SODIUM 148 mEq/L (136-145)
[2016-12-04] MEDS: MERREM 500MG 500 MG in Sodium Chloride 100ML MINI-BAG PLUS 100 ML IV SCH ×3 (06:36→20:43)
[2016-12-04] MEDS: DUONEB 0.5-3 MG/3 ml Neb IH SCH ×4 (07:30→20:32)
[2016-12-04] MEDS: PULMICORT 0.5 MG/2 ML RESPULES IH SCH ×2 (07:30→20:32)
[2016-12-04] MEDS ORDERED: Lasix 40 MG/4 ML IV ONE (07:40)
--- NOTE | 2016-12-04 07:42 | PCM.NOTE ---
Date and Time: 12/04/1638 Subjective Assessment: more alert yesterday tolerated wean of oxygen back to his home level of 2L was fatigued by end of day and hallucinating again did have 2 desats and 1 episode of bp drop currently awakens to voice and has no complaints Objective Exam General Appearance: no apparent distress Neurologic Exam: alert, cooperative Skin Exam: warm, dry, No rash Ears, Nose, Throat Exam: moist mucous membranes Neck Exam: non-tender, supple Respiratory Exam: crackles/rales, No wheezing Cardiovascular Exam: tachycardia, No edema Gastrointestinal/Abdomen Exam: soft, normal bowel sounds, No tenderness, No distention, No mass, No guarding Extremity Exam: normal inspection, No calf tenderness, No pedal edema OBJECTIVE DATA Vital Signs: Vital Signs - 24 hr Temp Pulse Resp BP Pulse Ox 12/04/16 06:43 19 97 12/04/16 06:35 97.7 F 91 H 16 114/82 98 12/04/16 05:00 101 H 17 121/83 98 12/04/16 04:00 97.9 F 101 H 15 124/79 97 12/04/16 00:00 98.4 F 102 H 18 106/68 96 12/03/16 23:50 102 H 12/03/16 22:50 105 H 20 117/73 96 12/03/16 20:19 116 H 22 102/65 91 L 12/03/16 20:15 117 H 21 85/57 70 L 12/03/16 19:53 99.3 F 110 H 20 106/62 96 12/03/16 19:09 105 H 23 94 L 12/03/16 17:57 95 12/03/16 16:00 99.0 F 105 H 23 118/72 97 12/03/16 14:41 103 H 20 98 12/03/16 12:00 98.2 F 103 H 19 105/71 97 12/03/16 10:41 101 H 22 100 12/03/16 08:00 98.4 F 104 H 18 112/73 97 Oxygen-Last 24 hours O2 Percentage 2 Liters = 28% O2 Percentage 3 Liters = 32% O2 Percentage 4 Liters = 36% O2 Percentage 6 Liters = 44% O2 Percentage 100% O2 Percentage 6 Liters = 44% O2 Percentage 6 Liters = 44% O2 Percentage 6 Liters = 44% Pain Assessment - Last Documented Pain Intensity 0 Pain Scale Used [facility] Intake and Output: Intake & Output 12/01/16 12/02/16 12/03/16 12/04/16 11:59 11:59 11:59 11:59 Intake Total 1495 1922 1638 Output Total 2600 1575 1600 Balance -1105 347 38 Weight 98.1 kg 97.9 kg 96.6 kg Lab Results: Accuchecks Date 12/04/16 Date 12/03/16 Date 12/03/16 Time 04:00 Time 22:45 Time 13:00 Accucheck Value: 168 Accucheck Value: 152 Lab Results-Last 24 Hours 12/04/16 12/04/16 Range/Units 05:16 05:16 WBC 9.7 (4.0-10.5) K/mm3 RBC 3.25 L (4.1-5.6) M/mm3 Hgb 9.4 L (12.5-18.0) gm/dl Hct 31.3 L (42-50) % MCV 96.3 (78-100) fl MCH 28.9 (26-32) pg MCHC 30.0 L (32-36) g/dl RDW 15.9 H (11.5-14.0) % Plt Count 338 (150-450) K/mm3 MPV 8.8 (6-9.5) fl Sodium 148 H (136-145) mEq/L Potassium 3.3 L (3.5-5.1) mEq/L Chloride 108 H (98-107) mEq/L Carbon Dioxide 32.3 H (21-32) mEq/L Anion Gap 10.7 (5-15) MEQ/L BUN 22 H (9-20) mg/dL Creatinine 1.14 (0.55-1.30) mg/dl Estimated GFR > 60 ML/MIN Glucose 145 H (70-110) MG/DL Calcium 9.0 (8.5-10.1) mg/dL NT-Pro-B Natriuret Pep 4605 H (0-450) pg/ml Radiology Exams: Radiology Procedures Category Date Time Status CHEST 1 VIEW (PORTABLE) Routine Exams 12/03/16 08:09 Completed Assessment/Plan (1) Pneumonia Current Visit: Yes Status: Acute Assessment & Plan: improving on the meropenem and addition of the hydrocortisone continue for now worsening chf currently with improvement in renal function now increased bibasilar effusions increase lasix hypokalemia replace recheck K improve diet d/c iv fluids transfer to med surg add low dose carvedilol 3.125 with chf and chronic elevated troponins Code(s): J18.9 - PNEUMONIA, UNSPECIFIED ORGANISM (2) Acute and chronic respiratory failure Current Visit: Yes Status: Acute Code(s): J96.20 - ACUTE AND CHR RESP FAILURE, UNSP W HYPOXIA OR HYPERCAPNIA (3) Encephalopathy acute Current Visit: Yes Status: Acute Code(s): G93.40 - ENCEPHALOPATHY, UNSPECIFIED (4) Sepsis Current Visit: Yes Status: Acute (5) UTI (urinary tract infection) Current Visit: Yes Status: Acute Code(s): N39.0 - URINARY TRACT INFECTION, SITE NOT SPECIFIED (6) Acute kidney injury Current Visit: Yes Status: Acute Code(s): N17.9 - ACUTE KIDNEY FAILURE, UNSPECIFIED (7) CHF (congestive heart failure) Current Visit: Yes Status: Chronic Qualifiers: Congestive heart failure type: combined Congestive heart failure chronicity : chronic Qualified Code(s): I50.42 - Chronic combined systolic (congestive) and diastolic (congestive) heart failure Code(s): I50.9 - HEART FAILURE, UNSPECIFIED (8) BPH (benign prostatic hyperplasia) Current Visit: Yes Status: Chronic Code(s): N40.0 - BENIGN PROSTATIC HYPERPLASIA WITHOUT LOWER URINRY TRACT SYMP (9) Dementia Current Visit: Yes Status: Chronic Code(s): F03.90 - UNSPECIFIED DEMENTIA WITHOUT BEHAVIORAL DISTURBANCE (10) Anemia Current Visit: Yes Status: Acute Code(s): D64.9 - ANEMIA, UNSPECIFIED
[2016-12-04] MEDS: POTASSIUM CHLORIDE 20 mEq IN WATER 100ML 20 MEQ/100 ML BAG IV SCH ×2 (07:51→10:46)
[2016-12-04] MEDS: Coreg 3.125 MG PO SCH ×2 (09:05→20:19)
[2016-12-04] MEDS: ZYLOPRIM 100 MG PO SCH (09:05)
[2016-12-04] MEDS: XARELTO 10 MG TABLET PO SCH (09:05)
[2016-12-04] MEDS: Klor Con 10 MEQ PO SCH ×3 (09:05→20:18)
[2016-12-04] MEDS: Lexapro 10 MG PO SCH (09:05)
[2016-12-04] MEDS: BACIGUENT 30 GM TOP SCH ×2 (09:06→20:19)
[2016-12-04] MEDS: Lasix 40 MG PO SCH (09:06)
[2016-12-04] MEDS: Flonase NASAL NS SCH ×2 (09:06→20:20)
[2016-12-04] MEDS: THERAGRAN MULTIVITAMIN PO SCH (09:06)
[2016-12-04] MEDS: Pepcid 20 MG PO SCH (20:18)
[2016-12-04] MEDS: LUMIGAN 0.01% 2.5 ML OP SCH (20:19)
[2016-12-04] MEDS ORDERED: LASIX 20 MG PO SCH (22:00)
[2016-12-05 05:44] LABS: Mean Cell Volume 96.8 fl (78-100); Mean Corpuscular Hemoglobin 28.8 pg (26-32); Mean Platelet Volume 9.3 fl (6-9.5); Platelet Count 357 K/mm3 (150-450); Red Blood Count 3.47 M/mm3 (4.1-5.6); White Blood Count 10.2 K/mm3 (4.0-10.5)
[2016-12-05] MEDS: solu-CORTEF 100MG IV SCH (05:49)
[2016-12-05] MEDS: MERREM 500MG 500 MG in Sodium Chloride 100ML MINI-BAG PLUS 100 ML IV SCH (05:49)
[2016-12-05 05:59] LABS: BLOOD UREA NITROGEN 23 mg/dL (9-20); CHLORIDE 110 mEq/L (98-107); Carbon Dioxide 31.2 mEq/L (21-32); Glucose 159 MG/DL (70-110); SODIUM 148 mEq/L (136-145)
[2016-12-05] MEDS: DUONEB 0.5-3 MG/3 ml Neb IH SCH ×2 (06:39→10:50)
[2016-12-05] MEDS: PULMICORT 0.5 MG/2 ML RESPULES IH SCH (06:40)
[2016-12-05] MEDS: Coreg 3.125 MG PO SCH (08:05)
[2016-12-05] MEDS: Provigil 100MG Tablet PO SCH (08:05)
[2016-12-05] MEDS: THERAGRAN MULTIVITAMIN PO SCH (08:05)
[2016-12-05] MEDS: XARELTO 10 MG TABLET PO SCH (08:06)
[2016-12-05] MEDS: Klor Con 10 MEQ PO SCH (08:06)
[2016-12-05] MEDS: BACIGUENT 30 GM TOP SCH (08:06)
[2016-12-05] MEDS: Lexapro 10 MG PO SCH (08:06)
[2016-12-05] MEDS: Lasix 40 MG PO SCH (08:06)
[2016-12-05] MEDS: ZYLOPRIM 100 MG PO SCH (08:06)
[2016-12-05] MEDS: Flonase NASAL NS SCH (08:07)
--- NOTE | 2016-12-05 08:16 | PCM.DS ---
Discharge Summary Date of Admission: 12/01/16 15:18 Date of Discharge: 12/05/16 Admitting Physician: OSWALDO BROCK Consults: Consults on Case 12/02/16 09:24 Consult Pulmonology ROUTINE Primary Care Provider: OSWALDO BROCK Allergies Allergies levofloxacin [From Levaquin] Allergy (Intermediate, Verified 12/01/16 12:51) morphine Allergy (Intermediate, Verified 12/01/16 12:51) cefamandole nafate [From Mandol] Allergy (Mild, Verified 12/01/16 12:51) ketorolac tromethamine [From Toradol] Allergy (Mild, Verified 12/01/16 12:51) meperidine HCl [From Demerol] Allergy (Mild, Verified 12/01/16 12:51) mardol Allergy (Uncoded 12/01/16 12:51) Hospital Summary - Hospital Course Hospital Course: Mr. Rodríguez suffers from dementia chronic chf, copd and recurrent UTI. He became unresponsive in [facility] over the weekend and had low bp, fever and was transported to ED where he was found to have pneumonia, respiratory failure, uti , sepsis, acute kidney injury and toxic encephalopathy. He was treated with 5 days of meropenem and his bp was initially still dropping intermittently despite starting to become fluid overloaded with pleural effusions and was started on hydrocoritsone with good improvement in this. he was diuresed as well and his oxygen was able to be weaned to 2L which he is on as an outpatient at night already. He was improving until he was changed from ICU room to floor room his mental status worsened again with confusion and delirium that he has intermittently with his chronic dementia. He was otherwise stable and improved and was discharged back to [facility] with his severity of illness and recurrent nature of uti will do 5 additional day of Rocephin for the pneumonia an UTI. wean the steroid with prednisone taper and decrease the routine norco which was stopped while inpatient to prn dosing. With his chf and tachycardia low dose carvedilol was added as well. - Vitals & Intake/Output Vital Signs: Vital Signs Temperature 97.9 F 12/05/16 07:42 Pulse Rate 105 H 12/05/16 07:42 Respiratory Rate 20 12/05/16 07:42 Blood Pressure 111/76 12/05/16 07:42 O2 Sat by Pulse Oximetry 91 L 12/05/16 07:42 Oxygen-Last Documented O2 Percentage 2 Liters = 28% Intake & Output: Intake & Output 12/02/16 12/03/16 12/04/16 12/05/16 11:59 11:59 11:59 11:59 Intake Total 1495 1922 2290 320 Output Total 2600 1575 2100 1650 Balance -1105 347 190 -1330 Weight 98.1 kg 97.9 kg 96.6 kg 97.658 kg - Lab Result Diagrams: 12/05/16 05:25 12/05/16 05:25 Lab Results-Last 24 Hrs: Accuchecks Date 12/05/16 Date 12/04/16 Date 12/04/16 Date 12/04/16 Time 07:30 Time 22:05 Time 18:24 Time 11:18 Accucheck Value: 139 Accucheck Value: 178 Accucheck Value: 173 Accucheck Value: 226 Lab Results-Last 24 Hours 12/04/16 12/04/16 12/05/16 Range/Units 14:30 14:40 05:25 WBC 10.2 (4.0-10.5) K/mm3 RBC 3.47 L (4.1-5.6) M/mm3 Hgb 10.0 L (12.5-18.0) gm/dl Hct 33.6 L (42-50) % MCV 96.8 (78-100) fl MCH 28.8 (26-32) pg MCHC 29.8 L (32-36) g/dl RDW 16.0 H (11.5-14.0) % Plt Count 357 (150-450) K/mm3 MPV 9.3 (6-9.5) fl Sodium (136-145) mEq/L Potassium 3.5 (3.5-5.1) mEq/L Chloride (98-107) mEq/L Carbon Dioxide (21-32) mEq/L Anion Gap (5-15) MEQ/L BUN (9-20) mg/dL Creatinine (0.55-1.30) mg/dl Estimated GFR ML/MIN Glucose (70-110) MG/DL Hemoglobin A1c 6.9 H (4.5-6.2) Calcium (8.5-10.1) mg/dL 12/05/16 Range/Units 05:25 WBC (4.0-10.5) K/mm3 RBC (4.1-5.6) M/mm3 Hgb (12.5-18.0) gm/dl Hct (42-50) % MCV (78-100) fl MCH (26-32) pg MCHC (32-36) g/dl RDW (11.5-14.0) % Plt Count (150-450) K/mm3 MPV (6-9.5) fl Sodium 148 H (136-145) mEq/L Potassium 4.0 (3.5-5.1) mEq/L Chloride 110 H (98-107) mEq/L Carbon Dioxide 31.2 (21-32) mEq/L Anion Gap 11.0 (5-15) MEQ/L BUN 23 H (9-20) mg/dL Creatinine 1.14 (0.55-1.30) mg/dl Estimated GFR > 60 ML/MIN Glucose 159 H (70-110) MG/DL Hemoglobin A1c (4.5-6.2) Calcium 9.3 (8.5-10.1) mg/dL Micro Results-Entire Visit: Accuchecks Date 12/05/16 Date 12/04/16 Date 12/04/16 Date 12/04/16 Time 07:30 Time 22:05 Time 18:24 Time 11:18 Accucheck Value: 139 Accucheck Value: 178 Accucheck Value: 173 Accucheck Value: 226 - Radiology Exams Ordered Rad Exams-Entire Visit: Radiology Procedures Category Date Time Status CHEST 1 VIEW (PORTABLE) Routine Exams 12/03/16 08:09 Completed - Procedures and Test Procedures and Tests throughout Hospitalization: Therapy Orders & Screens 12/01/16 15:20 Oxygen NASAL CANNULA 2 lpm Comment: 12/01/16 15:41 Respiratory Nebulizer QID Comment: 12/01/16 15:46 Respiratory Nebulizer BID Comment: 12/01/16 17:07 OT Screen per Nursing Assess Comment: Protocol Order Physician Instructions: Greater than 3 points order OT Admission Screening Reason For Exam: Triggered on Admission Diagnosis: Sepsis; UTI; Pneumonia Open Wound/Cellutlitis/Pressure Ulcers: No Acute Fx/ORIF/Change in wt bearing status: No Severe MUSCULOSKELETAL pain: No ADL Dysfunction: Yes Acute CVA w/Hemiparesis/Hemiplegia: No Decreased Functional Mobility/Strength: Yes Sprain/Strain: No Acute Post-op Mobility Dysfunction: No Total Points: 4 PT Screen per Nursing Assess ONCE Comment: Protocol Order Physician Instructions: Greater than 3 points order PT Admission Screenin Reason For Exam: Triggered on Admission Diagnosis: Sepsis; UTI; Pneumonia Open Wound/Cellutlitis/Pressure Ulcers: No Acute Fx/ORIF/Change in wt bearing status: No Severe MUSCULOSKELETAL pain: No ADL Dysfunction: Yes Acute CVA w/Hemiparesis/Hemiplegia: No Decreased Functional Mobility/Strength: Yes Sprain/Strain: No Acute Post-op Mobility Dysfunction: No Total Points: 4 RT Screen per Nursing Assess ONCE Comment: Protocol Order Physician Instructions: Greater than 3 points order RT Admission Screen Reason For Exam: Triggered on Admission Diagnosis: Sepsis; UTI; Pneumonia Diagnosis: Sepsis; UTI; Pneumonia Pneumonia: Yes Home O2: Yes Asthma: No CHF: Yes Home CPAP/BIPAP: No Home Nebs/MDI: Yes Total Points: 16 ST Screen per Nursing Assess once Comment: Protocol Order Physician Instructions: Greater than [address] Admission Screening Reason For Exam: Triggered on Admission Diagnosis: Sepsis; UTI; Pneumonia CVA/Dyshpagia/Aphasia: No Cognitive Deficits: Yes Dehydration/Nutrition Deficit: No Reflux: Yes Oral-Motor Difficulties: No Pneumonia: Yes Halfway Resident: Yes Total Points: 16 12/01/16 23:26 Respiratory Nebulizer PRN Comment: DUONEB Q4PRN FOR SOB/WHEEZING Diagnosis: Sepsis; UTI; Pneumonia 12/03/16 14:26 Speech Therapy Eval & Treat [ST Eval & Treat (MD Order)] .as ordered Comment: Physician Instructions: Reason For Exam: Evaluate: Yes Treat: Yes Reason for Eval: r/o aspiration Diagnosis: Sepsis; UTI; Pneumonia Discharge Exam General Appearance: no apparent distress Neurologic Exam: alert, cooperative, No oriented x 3 Skin Exam: warm, dry, No rash Eye Exam: pale conjunctivae, No scleral icterus Ears, Nose, Throat Exam: moist mucous membranes Neck Exam: non-tender, supple Respiratory Exam: crackles/rales, No wheezing Cardiovascular Exam: tachycardia, No murmur, No edema Gastrointestinal/Abdomen Exam: soft, normal bowel sounds, No tenderness, No distention, No mass, No guarding Extremity Exam: normal inspection, No calf tenderness, No pedal edema Male Genitalia Exam: other (medrano with clear yellow urine) Final Diagnosis/Problem List - Final Discharge Diagnosis/Problem (1) Pneumonia Status: Acute (2) Acute and chronic respiratory failure Status: Acute (3) Encephalopathy acute Status: Acute (4) Sepsis Status: Acute (5) UTI (urinary tract infection) Status: Acute (6) Acute kidney injury Status: Acute (7) CHF (congestive heart failure) Status: Chronic (8) BPH (benign prostatic hyperplasia) Status: Chronic (9) Dementia Status: Chronic (10) Anemia Status: Acute - Discharge Discharge Date: 12/05/16 Disposition: DC TO [facility] Condition: Fair Prescriptions: New Carvedilol 3.125 mg [Coreg 3.125 MG] 3.125 mg PO BID tablet Ceftriaxone Na/Dextrose,Iso [Ceftriaxone 1 gm Piggyback] 1 gm IV DAILY #5 gm Continue Ranitidine HCl [Zantac] 150 mg PO HS Potassium Chloride 20 Meq Tab [Potassium Chloride 20 MEQ TABLET] 30 meq PO HS Bimatoprost 0.01% [Lumigan 0.01% 2.5 ml] 1 drop OP HS Acetaminophen [Tylenol Extra Strength] 500 mg PO Q4HPRN PRN PRN Reason: fever/pain Escitalopram Oxalate 10 mg [Lexapro 10 MG] 10 mg PO DAILY Rivaroxaban 10 mg Tablet [Xarelto 10 mg Tablet] 10 mg PO DAILY Furosemide [Lasix] 40 mg PO DAILY Albuterol/Ipratropium 3ml Neb* [DUONEB 0.5-3 MG/3 ml Neb] 1 neb IH Q6HPRN PRN PRN Reason: wheezing Gabapentin [Neurontin] 300 mg PO TID Modafinil 200 mg PO DAILY Multivit-Min/FA/Lycopene/Lut [Centrum Silver Tablet] 1 each PO DAILY Hydrocortisone [Preparation H] 26 gm TP UD Mag Hydrox/Al Hydrox/Simeth [Mylanta Maximum Strength Liq] 30 ml PO Q6H PRN PRN PRN Reason: Indigestion Loperamide HCl 2 mg [Imodium 2 mg] 2 mg PO Q4H PRN PRN PRN Reason: Diarrhea Fluticasone Propionate [Flonase Allergy Relief] 2 spray NS BID Bacitracin [Bacitraycin Plus] 28 gm TP BID Allopurinol 100 mg [Zyloprim 100 mg] 100 mg PO DAILY Budesonide 0.25 mg IH BID Changed Hydrocodone Bit/Acetaminophen [Eddy 5-325 Tablet] 1 each PO TID PRN #90 tablet PRN Reason: Pain Prednisone 10 mg [Deltasone 10 mg] 30 mg PO DAILY #0 Follow up with: OSWALDO BROCK [Primary Care Provider] - Forms: Patient Portal Information
[2016-12-05] MEDS ORDERED: Lasix 20 MG/2 ML IV ONE (08:30)
[2016-12-05 11:40] VITALS: BP 119/80; PULSE 97; O2SAT 90
== END 2016-12-05 11:10 | DRG 193 ==
LOC: ED 12:33 → ICU 15:18 → MED SURG 12-04 15:03
PROVIDERS: ADMIT Family Medicine; ATTEND Family Medicine
DX: J18.9 Pneumonia, unspecified organism (principal); J96.20 Acute and chronic respiratory failure, unspecified whether with hypoxia or hypercapnia; G93.40 Encephalopathy, unspecified; A41.9 Sepsis, unspecified organism; J96.11 Chronic respiratory failure with hypoxia; N39.0 Urinary tract infection, site not specified; N17.9 Acute kidney failure, unspecified; I50.42 Chronic combined systolic (congestive) and diastolic (congestive) heart failure; B96.20 Unspecified Escherichia coli [E. coli] as the cause of diseases classified elsewhere; N40.0 Benign prostatic hyperplasia without lower urinary tract symptoms; F03.90 Unspecified dementia, unspecified severity, without behavioral disturbance, psychotic disturbance, mood disturbance, and anxiety; D64.9 Anemia, unspecified; J44.9 Chronic obstructive pulmonary disease, unspecified; I48.91 Unspecified atrial fibrillation; N31.9 Neuromuscular dysfunction of bladder, unspecified; I73.9 Peripheral vascular disease, unspecified; M19.90 Unspecified osteoarthritis, unspecified site; I25.10 Atherosclerotic heart disease of native coronary artery without angina pectoris; K21.9 Gastro-esophageal reflux disease without esophagitis; Z79.01 Long term (current) use of anticoagulants; Z79.899 Other long term (current) drug therapy
CPT/HCPCS: 36000; 36415; 36600; 51702; 70450; 71010; 80048; 80053; 81000; 82375; 82803; 82805; 82962; 83036; 83605; 83880; 84132; 84484; 85025; 85027; 85610; 85730; 87040; 87077; 87086; 87186; 87493; 87631; 93005; 93041; 94640; 94760; 96360; 96361; 99285; J0456; J0696; J1720; J1940; J3480; A9270-GY; J7506

== ENCOUNTER 2016-12-25 13:12 | Day surgery (SDC) | payer MEDICARE ==
[~2016-12-25 13:12] MED LIST: ACETAZOLAMIDE 250 MG TABLET PO ONE; Ak-Dilate OPHTHALMIC*** 0.71 ML, Cyclogyl 1% OPHTH SOL 5 ML 0.71 ML, GATIFLOXACIN 0.5% ... OP ONE; Lactated Ringers 1,000 ML IV ONE; Lactated Ringers 1,000 ML IV SCH; TETRACAINE 0.5% STERI-UNIT SOL OP ONE; Zofran 4 MG/2 ML VIAL IV PRN
[2016-12-25] MEDS ORDERED: DIPRIVAN 200 MG/20 ML IV ONE (13:13)
[2016-12-25] MEDS: [UNRECOGNIZED DRUG - OTHER] OP ONE ×3 (13:50→14:16)
[2016-12-25] MEDS ORDERED: Epinephrine Preservative Free 1 MG/ML INTRAOP ONE (15:00)
[2016-12-25] MEDS ORDERED: LIDOCAINE HCL 1% AMPUL 5 ML IJ ONE (15:00)
[2016-12-25] MEDS ORDERED: BETADINE 5% OPHTHALMIC 30 ML OP ONE (15:00)
[2016-12-25 16:01] VITALS: BP 118/73; PULSE 88; O2SAT 97
--- NOTE | 2016-12-26 08:39 | OP ---
DATE/TIME OF OPERATION: 12/25/2016 1427 TIME DICTATED: 1522 PREOPERATIVE DIAGNOSIS: Senile cataract of right eye. POSTOPERATIVE DIAGNOSIS: Senile cataract of right eye. SURGEON: Veronica Mckeon MD LOG CARRIER OPERATOR: None. OPERATION: Cataract extraction of right eye with an intraocular lens implant. STANDARD COMPLEX __X____ ANESTHESIA: MAC. ___X___ Monitored anesthesia care in combination with topical and intra-cameral anesthesia (because of the established specific risk of reflux, arrhythmias, or an anxiety attack associated with ocular manipulation as well as difficulty of the landscape architecture teacher to manage such potentially catastrophic events while simultaneously attempting to complete the surgical procedure, it was deemed necessary for the patient's safety to have an anesthesiologist or a nurse online retailer present during the procedure whenever possible. The anesthesiologist or the nurse online retailer was utilized to monitor and regulate the intravenous sedation of the patient, so the patient was cooperative, relaxed, and comfortable). Topical anesthesia using Tetracaine eye drops together with intra cameral anesthesia using Lidocaine 1% MPF. The nurse was utilized to monitor the patient. ANESTHESIA PROVIDER: Brandin Anne CRNA. COMPLICATIONS: None. BLOOD LOSS: None. INDICATIONS: The patient is undergoing cataract surgery in the hopes of eliminating the visual complaints and difficulty. PROCEDURE: After arriving at the facility's outpatient surgery area, an IV was started; the patient was given 5 mg of p.o. Versed. (If an anesthesia provider was not monitoring the patient) The patient was then given topical anesthetic Tetracaine eye drops. A cotton pellet was soaked into a solution of a combination of Zymaxid 0.5%, Atif-Synephrine 2.5% and Ocufen (other drops might have been substituted referenced in the patient's record). The pellet was inserted by the RN into the lower conjunctival cul-de-sac with a sterile forceps and left for 20 minutes. The pellet was then removed by the RN with a sterile forceps before taking the patient to the operating room. The preoperative area nurse identified the patient and marked the correct eye to be operated on. I identified the correct eye to be operated on and marked it appropriately in the outpatient surgery area. The patient was then taken into the operating room. Tetracaine eye drops were installed again in the correct eye. The eyelids and the lashes and the lid margins were scrubbed with Betadine solution. One drop of the diluted Betadine solution was placed in the conjunctival cul-de-sac for 45 seconds and then was irrigated. A drop of Tetracaine Gel was placed in the conjunctival cul-de-sac. The patient's forehead was taped to secure it during the procedure. The patient was monitored. The patient was then draped in the usual way for this procedure. An eye speculum was used to separate the eyelids. The eye was then fixated and a temporal 2.5 mm incision was made in the clear cornea temporally at the limbus. Through the incision, 0.25 cc of 1% non-preserved lidocaine was injected into the anterior chamber for intracameral anesthesia. The anterior chamber was then filled with viscoelastic. The pupil was small. I felt that it would be safer to mechanically dilate the pupil. A Malyugin ring was used at this point which dilated the pupil. That was removed at the end of the procedure prior to aspiration of the viscoelastic from the anterior chamber and posterior to the intraocular lens implant. The cataract had a great amount of cortical changes. That rendered seeing the anterior capsule difficult for a safe performance of an anterior capsulotomy. I injected an air bubble into the anterior chamber. I then injected 1 ML of vision blue solution into the anterior chamber. The vision blue solution was irrigated from the anterior chamber after 30 seconds. The anterior capsule was stained which facilitated performing the anterior capsulotomy safely. After that was completed, a cystotome was introduced into the anterior chamber and a round anterior capsulotomy was performed. The capsule was removed by a forceps. Hydrodissection was next carried utilizing a 25-gauge cannula and balanced salt solution to delineate the cortical material from the capsule and the nucleus from the cortical material. The nucleus was rotated freely into the capsular bag with no difficulty. The phaco tip of the [employer] Phacoemulsifier was introduced into the anterior chamber and two grooves were made into the nucleus 90 degrees apart. Using two spatulas resulted into the nucleus being fractured into four quadrants. The phaco tip was then used to remove each quadrant of the nucleus. Viscoelastic was used during this process to protect the corneal endothelium. Once the entire nucleus was removed, the phaco tip then was removed and the irrigation tip was introduced into the eye and the cortex was removed. The posterior capsule was polished. It was noticed that there was a tear into the posterior capsule with few vitreous strands into the pupil plan. An anterior vitrectomy was performed. A 19.00 diopter, [id number], posterior chamber lens implant, was inspected and found to be grossly normal. The implant was inserted into the implant injector cartridge; Viscoelastic again was introduced into the anterior chamber, which filled the capsular bag. The implant injector's cartridge tip was placed at the limbal wound and the posterior chamber implant was released into the capsular bag and rotated appropriately. The implant was found to be into the capsular bag and it was centered. __X___ 0.2 ml of Tri-Moxi was introduced via 27 gauge cannula into the vitreous cavity through the ciliary processes. Viscoelastic was aspirated from the anterior chamber and posterior to the intraocular lens implant from the capsular bag using the irrigating tip. The anterior chamber was irrigated and filled with 5 cc antibiotic solution (500 cc of BSS plus 2 ml of Fortaz 100 mg/ml) ( if patient was not allergic to the medication). The lips of the corneal incision were hydrated using BSS solution. The anterior chamber was checked and found to be water tight. One drop each of antibiotic, steroid and NSAID drops (refer to chart for drops used) were placed in the conjunctival cul-de-sac of the operated eye. Patient tolerated the procedure quite well and left the operating room in satisfactory condition. DISCHARGE SUMMARY: The patient was released in stable condition. The patient and those with the patient were given an instruction sheet as of how to care for the eye after surgery as well as counseling on any abnormal laboratory studies by the postoperative RN. The patient was also given an appointment card for follow-up in the office and is to call immediately for any difficulties including but not limited to pain in the eye, decreased vision, discharge from the eye, headache and or fever. DISCHARGE DIAGNOSIS: Pseudophakia of right eye.
== END 2016-12-25 16:30 ==
LOC: SDC 13:12
PROVIDERS: ATTEND Ophthalmology
PROC: 08RJ3JZ Replacement of Right Lens with Synthetic Substitute, Percutaneous Approach (ICD-10-PCS; principal; 2016-12-25)
DX: H25.9 Unspecified age-related cataract (principal)
CPT/HCPCS: 66982; C1780; 00142; 99100; J0171; J2704; A9270-GY

== ENCOUNTER 2017-01-22 07:42 | Day surgery (SDC) | payer MEDICARE ==
[2017-01-22] MEDS ORDERED: Lasix 20 MG/2 ML IV ONE (07:43)
[2017-01-22] MEDS ORDERED: DIPRIVAN 200 MG/20 ML IV ONE (07:43)
[2017-01-22] MEDS ORDERED: Xopenex 1.25 MG/0.5 ML UD NEBULE IH ONE ×2 (08:47→08:49)
[2017-01-22] MEDS ORDERED: Lactated Ringers 1,000 ML IV ONE (08:49)
[2017-01-22] MEDS ORDERED: Sodium Chloride 3 ML UD NEBULES IH PRN (08:50)
[2017-01-22] MEDS ORDERED: BETADINE 5% OPHTHALMIC 30 ML OP ONE (10:00)
[2017-01-22] MEDS ORDERED: BSS 500 ML, Fortaz/Tazicef 1 GM** 0.2 G IO ONE ×2 (10:00)
[2017-01-22] MEDS ORDERED: LIDOCAINE HCL 1% AMPUL 5 ML IJ ONE (10:00)
[2017-01-22] MEDS ORDERED: Epinephrine Preservative Free 1 MG/ML INTRAOP ONE (10:00)
[2017-01-22] MEDS ORDERED: Lactated Ringers 1,000 ML IV SCH (10:30)
[2017-01-22] MEDS ORDERED: Ak-Dilate OPHTHALMIC*** 0.71 ML, Cyclogyl 1% OPHTH SOL 5 ML 0.71 ML, GATIFLOXACIN 0.5% ... OP ONE ×4 (10:30)
[2017-01-22] MEDS ORDERED: TETRACAINE 0.5% STERI-UNIT SOL OP ONE ×2 (10:30)
[2017-01-22] MEDS ORDERED: TYLENOL 325 MG PO STA (11:21)
[2017-01-22] MEDS ORDERED: TYLENOL 325 MG ONE (11:22)
--- NOTE | 2017-01-22 12:29 | OP ---
DATE/TIME OF OPERATION: 01/22/2017 1012 TIME DICTATED: 1151 PREOPERATIVE DIAGNOSIS: Senile cataract of left eye. POSTOPERATIVE DIAGNOSIS: Senile cataract of left eye. SURGEON: Veronica Mckeon MD ERP PROJECT MANAGER: None. OPERATION: Cataract extraction of left eye with an intraocular lens implant. STANDARD __X___ COMPLEX ANESTHESIA: MAC. ___X___ Monitored anesthesia care in combination with topical and intra-cameral anesthesia (because of the established specific risk of reflux, arrhythmias, or an anxiety attack associated with ocular manipulation as well as difficulty of the residence director to manage such potentially catastrophic events while simultaneously attempting to complete the surgical procedure, it was deemed necessary for the patient's safety to have an anesthesiologist or a nurse program manufacturing leader present during the procedure whenever possible. The anesthesiologist or the nurse program manufacturing leader was utilized to monitor and regulate the intravenous sedation of the patient, so the patient was cooperative, relaxed, and comfortable). Topical anesthesia using Tetracaine eye drops together with intra cameral anesthesia using Lidocaine 1% MPF. The nurse was utilized to monitor the patient. ANESTHESIA PROVIDER: Brandin Anne CRNA. COMPLICATIONS: None. BLOOD LOSS: None. INDICATIONS: The patient is undergoing cataract surgery in the hopes of eliminating the visual complaints and difficulty. PROCEDURE: After arriving at the facility's outpatient surgery area, an IV was started; the patient was given 5 mg of p.o. Versed. (If an anesthesia provider was not monitoring the patient) The patient was then given topical anesthetic Tetracaine eye drops. A cotton pellet was soaked into a solution of a combination of Zymaxid 0.5%, Atif-Synephrine 2.5% and Ocufen (other drops might have been substituted referenced in the patient's record). The pellet was inserted by the RN into the lower conjunctival cul-de-sac with a sterile forceps and left for 20 minutes. The pellet was then removed by the RN with a sterile forceps before taking the patient to the operating room. The preoperative area nurse identified the patient and marked the correct eye to be operated on. I identified the correct eye to be operated on and marked it appropriately in the outpatient surgery area. The patient was then taken into the operating room. Tetracaine eye drops were installed again in the correct eye. The eyelids and the lashes and the lid margins were scrubbed with Betadine solution. One drop of the diluted Betadine solution was placed in the conjunctival cul-de-sac for 45 seconds and then was irrigated. A drop of Tetracaine Gel was placed in the conjunctival cul-de-sac. The patient's forehead was taped to secure it during the procedure. The patient was monitored. The patient was then draped in the usual way for this procedure. An eye speculum was used to separate the eyelids. The eye was then fixated and a temporal 2.5 mm incision was made in the clear cornea temporally at the limbus. Through the incision, 0.25 cc of 1% non-preserved lidocaine was injected into the anterior chamber for intracameral anesthesia. The anterior chamber was then filled with viscoelastic. The pupil was small. I felt that it would be safer to mechanically dilate the pupil. A Malyugin ring was used at this point which dilated the pupil. That was removed at the end of the procedure prior to aspiration of the viscoelastic from the anterior chamber and posterior to the intraocular lens implant. The cataract had a great amount of cortical changes. That rendered seeing the anterior capsule difficult for a safe performance of an anterior capsulotomy. I injected an air bubble into the anterior chamber. I then injected 1 ML of vision blue solution into the anterior chamber. The vision blue solution was irrigated from the anterior chamber after 30 seconds. The anterior capsule was stained which facilitated performing the anterior capsulotomy safely. After that was completed, a cystotome was introduced into the anterior chamber and a round anterior capsulotomy was performed. The capsule was removed by a forceps. Hydrodissection was next carried utilizing a 25-gauge cannula and balanced salt solution to delineate the cortical material from the capsule and the nucleus from the cortical material. The nucleus was rotated freely into the capsular bag with no difficulty. The phaco tip of the [employer] Phacoemulsifier was introduced into the anterior chamber and two grooves were made into the nucleus 90 degrees apart. Using two spatulas resulted into the nucleus being fractured into four quadrants. The phaco tip was then used to remove each quadrant of the nucleus. Viscoelastic was used during this process to protect the corneal endothelium. Once the entire nucleus was removed, the phaco tip then was removed and the irrigation tip was introduced into the eye and the cortex was removed. The posterior capsule was polished. It was noticed that there was a tear into the posterior capsule with few vitreous strands into the pupil plan. An anterior vitrectomy was performed. A 19.50 diopter, [id number], posterior chamber lens implant, was inspected and found to be grossly normal. The implant was inserted into the implant injector cartridge; Viscoelastic again was introduced into the anterior chamber, which filled the capsular bag. The implant injector's cartridge tip was placed at the limbal wound and the posterior chamber implant was released into the capsular bag and rotated appropriately. The implant was found to be into the capsular bag and it was centered. ___X__ 0.2 ml of Tri-Moxi was introduced via 27 gauge cannula into the vitreous cavity through the ciliary processes. Viscoelastic was aspirated from the anterior chamber and posterior to the intraocular lens implant from the capsular bag using the irrigating tip. The anterior chamber was irrigated and filled with 5 cc antibiotic solution (500 cc of BSS plus 2 ml of Fortaz 100 mg/ml) ( if patient was not allergic to the medication). The lips of the corneal incision were hydrated using BSS solution. The anterior chamber was checked and found to be water tight. One drop each of antibiotic, steroid and NSAID drops (refer to chart for drops used) were placed in the conjunctival cul-de-sac of the operated eye. Patient tolerated the procedure quite well and left the operating room in satisfactory condition. DISCHARGE SUMMARY: The patient was released in stable condition. The patient and those with the patient were given an instruction sheet as of how to care for the eye after surgery as well as counseling on any abnormal laboratory studies by the postoperative RN. The patient was also given an appointment card for follow-up in the office and is to call immediately for any difficulties including but not limited to pain in the eye, decreased vision, discharge from the eye, headache and or fever. DISCHARGE DIAGNOSIS: Pseudophakia of left eye.
[2017-01-22 12:58] VITALS: BP 99/67; PULSE 80; O2SAT 100
[2017-01-22] MEDS ORDERED: ACETAZOLAMIDE 250 MG TABLET PO ONE (14:00)
[2017-01-22] MEDS ORDERED: Zofran 4 MG/2 ML VIAL IV PRN (14:00)
== END 2017-01-22 14:52 ==
LOC: SDC 07:42 → EDSTATUS 11:18 → SDC 14:52
PROVIDERS: ATTEND Ophthalmology
PROC: 08RK3JZ Replacement of Left Lens with Synthetic Substitute, Percutaneous Approach (ICD-10-PCS; principal; 2017-01-22)
PROC: 08B53ZZ Excision of Left Vitreous, Percutaneous Approach (ICD-10-PCS; 2017-01-22)
DX: H25.9 Unspecified age-related cataract (principal); F03.90 Unspecified dementia, unspecified severity, without behavioral disturbance, psychotic disturbance, mood disturbance, and anxiety; I51.9 Heart disease, unspecified; G62.9 Polyneuropathy, unspecified
CPT/HCPCS: 94640; 66984; 67005; C1780; 00142; 99100; J0171; J1940; J2704; A9270-GY